=== PATIENT | male | born 1995 | race Two or more races ===

== ENCOUNTER 2020-10-22 21:11 | Emergency (ER) | payer SELFPAY ==
[~2020-10-22] VITALS: Ht 170.2 cm; Wt 81.6 kg
[2020-10-22 21:14] VITALS: BP 126/88
== END 2020-10-23 00:46 | disposition left against medical advice (07) ==
LOC: ER 21:11
DX: H57.11 Ocular pain, right eye (principal); Z53.21 Procedure and treatment not carried out due to patient leaving prior to being seen by health care provider